=== PATIENT | female | born 1990 | race Caucasian/White ===

== ENCOUNTER → 2020-05-23 | Outpatient (CLI) | payer MEDICARE, OTHER ==
[2020-05-23 15:37] LABS: HEMATOCRIT 33.6 % (36.0-47.0); HEMOGLOBIN 11.5 g/dL (12.0-15.5); RED BLOOD COUNT 3.84 x10^6/uL (3.50-5.40); RED CELL DISTRIBUTION WIDTH 14.6 % (11.5-14.5); WHITE BLOOD COUNT 16.8 x10^3/uL (4.0-11.0)
== END | disposition home or self-care (01) ==
LOC: LAB 14:15
PROVIDERS: ATTEND Obstetrics & Gynecology
DX: Z34.92 Encounter for supervision of normal pregnancy, unspecified, second trimester (principal)
CPT/HCPCS: 36415; 82950; 85027

== ENCOUNTER → 2020-06-04 | Outpatient (CLI) | payer MEDICARE, OTHER ==
--- NOTE | 2020-06-04 17:40 | RAD ---
Examination: PREG MORE THAN OR EQ TO 14 WKS History: Reason: screening / Spl. Instructions: / History: Comparison/Correlation: None Findings: OB ultrasound exam was performed. Single living intrauterine gestation with a breech lie is present and has a heart rate of 126 beats per minute. Grade 1 placenta is present along the anterior wall. motion including cardiac motion is seen. breathing noted. anatomy identified includes: Cord insertion, stomach, kidneys, spine, brain, fluid in the bladder. Bilateral extremities are visualized. Normal quantity of amniotic fluid is seen. Biparietal diameter is 6.5 cm corresponding to 27 weeks 4 days. Head circumference is 24.7 cm corresponding to 26 weeks 6 days. Abdominal circumference is 23 corresponding to 27 weeks 3 days. Femur length is 4.88 cm corresponding to 26 weeks 3 days. Head circumference to abdominal circumference ratio is 1.08. Estimated weight is 1014 g. Average ultrasound age is 27 weeks 1 day. Ultrasound EDC is 09/02/2020. Maternal cervical length is 4.7 cm. Impression: Single living breech lie intrauterine gestation with average ultrasound age of 27 weeks 1 day. EDC by ultrasound is 6 days earlier than EDC by last menstrual period. Electronically signed by: Baljit Michele MD (06/04/2020 5:37 PM) [id number]
== END | disposition home or self-care (01) ==
LOC: US 14:49
PROVIDERS: ATTEND Obstetrics & Gynecology
DX: Z34.92 Encounter for supervision of normal pregnancy, unspecified, second trimester (principal); Z3A.27 27 weeks gestation of pregnancy
CPT/HCPCS: 76805

== ENCOUNTER 2020-08-16 10:37 | Observation (INO) | payer MEDICARE, OTHER ==
[2020-08-16 11:58] LABS: HEMATOCRIT 34.3 % (36.0-47.0); HEMOGLOBIN 11.4 g/dL (12.0-15.5); RED BLOOD COUNT 4.08 x10^6/uL (3.50-5.40); RED CELL DISTRIBUTION WIDTH 15.6 % (11.5-14.5); WHITE BLOOD COUNT 18.7 x10^3/uL (4.0-11.0)
[2020-08-16 12:03] LABS: CALCIUM 9.6 mg/dL (8.5-10.1); CREATININE 0.6 mg/dL (0.6-1.0); GFR 115.9; POTASSIUM 3.8 mmol/L (3.5-5.1)
[2020-08-16 12:10] LABS: ALBUMIN 2.6 g/dL (3.4-5.0); ALBUMIN/GLOBULIN RATIO 0.7 (1.0-1.7); TOTAL BILIRUBIN 0.1 mg/dL (0.2-1.0); TOTAL PROTEIN 6.5 g/dL (6.4-8.2); URIC ACID 4.4 mg/dL (2.6-6.0)
== END 2020-08-16 12:40 | disposition home or self-care (01) ==
LOC: 3 SO LND 10:37
PROVIDERS: ADMIT Obstetrics & Gynecology; ATTEND Obstetrics & Gynecology
DX: O62.9 Abnormality of forces of labor, unspecified (principal); Z3A.36 36 weeks gestation of pregnancy
CPT/HCPCS: 36415; 80053; 83615; 84550; 85027; G0378; G0379

== ENCOUNTER 2020-08-23 10:49 | Observation (INO) | payer MEDICARE, OTHER | END 2020-08-23 12:03 | disposition home or self-care (01) | LOC: 3 SO LND 10:49 | PROVIDERS: ADMIT Obstetrics & Gynecology; ATTEND Family Medicine | DX: O26.893 Other specified pregnancy related conditions, third trimester (principal); O99.343 Other mental disorders complicating pregnancy, third trimester; F41.8 Other specified anxiety disorders; F32.9 Major depressive disorder, single episode, unspecified; Z3A.37 37 weeks gestation of pregnancy | CPT/HCPCS: G0378; G0379 ==

== ENCOUNTER → 2020-08-28 | Outpatient (CLI) | payer MEDICARE, OTHER | LOC: LAB 12:57 | PROVIDERS: ATTEND Obstetrics & Gynecology | DX: Z20.828 Contact with and (suspected) exposure to other viral communicable diseases (principal) | CPT/HCPCS: U0003-CS ==

== ENCOUNTER 2020-08-31 05:41 | Inpatient (IN) | payer MEDICARE, OTHER ==
[~2020-08-31] VITALS: Ht 175.3 cm; Wt 105.7 kg
[2020-08-31] MEDS ORDERED: CITRIC ACID/SODIUM CITRATE 30 ML SOLUTION. PO ONE (06:00)
[2020-08-31] MEDS ORDERED: IV NORMAL SALINE 1000ML BAG 1,000 ML IV SCH (06:00)
[2020-08-31] MEDS: IV RINGERS,LACTATED 1000ML 1,000 ML IV PRN ×3 (06:29→09:41)
[2020-08-31] MEDS ORDERED: AZITHROMYCIN 500 MG in IV NORMAL SALINE 250ML 250 ML IV ONE (06:30)
[2020-08-31] MEDS ORDERED: KETOROLAC 30 MG/ML VIAL. IV PRN (06:45)
[2020-08-31 06:48] LABS: BASO # 0.1 x10^3/uL (0.0-0.2); BASO % 1 % (0-3); EOS # 0.2 x10^3/uL (0.0-0.7); EOS % 2 % (0-3); HEMATOCRIT 34.1 % (36.0-47.0); HEMOGLOBIN 11.5 g/dL (12.0-15.5); LYMPH # 3.2 x10^3/uL (1.0-4.8); LYMPH % 21 % (24-48); MEAN CORPUSCULAR HEMOGLOBIN 28 pg (25-35); MEAN CORPUSCULAR HGB CONC 34 g/dL (31-37); MEAN CORPUSCULAR VOLUME 85 fL (79-100); MONO # 0.7 x10^3/uL (0.0-1.1); MONO % 5 % (0-9); NEUT # 11.2 x10^3/uL (1.8-7.7); NEUT % 73 % (31-73); PLATELET COUNT 280 x10^3/uL (140-400); RED BLOOD COUNT 4.03 x10^6/uL (3.50-5.40); RED CELL DISTRIBUTION WIDTH 16.3 % (11.5-14.5); WHITE BLOOD COUNT 15.5 x10^3/uL (4.0-11.0)
[2020-08-31] MEDS ORDERED: MORPHINE PF 10 MG/10 ML AMPUL. ONE (07:06)
[2020-08-31] MEDS ORDERED: fentaNYL PF VIAL 100 MCG/2 ML VIAL ONE (07:06)
[2020-08-31] MEDS ORDERED: ONDANSETRON PF 4 MG/2 ML VIAL. ONE (07:23)
[2020-08-31] MEDS ORDERED: OXYTOCIN 10 UNIT/ML VIAL. ONE (07:23)
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
[2020-08-31] MEDS ORDERED: GENTAMICIN SULFATE 230 MG in IV NORMAL SALINE 100ML 100 ML IV SCH (08:00)
[2020-08-31] MEDS ORDERED: PHENYLEPHRINE in 0.9% NACL PF 1 MG/10 ML SYRINGE. IV ONE (09:08)
[2020-08-31] MEDS ORDERED: ePHEDrine PF IN SALINE 50 MG/10 ML SYRINGE. IV ONE (09:08)
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
[2020-08-31] MEDS ORDERED: diphenhydrAMINE ORAL ELIXIR 12.5 MG/5 ML ML PO PRN (09:45)
[2020-08-31] MEDS ORDERED: oxyCODONE/APAP 5/325 1 TAB TABLET PO PRN ×2 (09:45)
[2020-08-31] MEDS ORDERED: MMR per PROTOCOL. MC PRN (09:45)
[2020-08-31] MEDS ORDERED: 0.9 % SODIUM CHLORIDE 10 ML DISP.SYRIN. IV PRN (09:45)
[2020-08-31] MEDS ORDERED: OXYTOCIN 30 UNIT/500 ML PREMIX 500 ML IV PRN (09:45)
[2020-08-31] MEDS ORDERED: TDaP (Adacel) per PROTOCOL. MC PRN (09:45)
[2020-08-31] MEDS ORDERED: BENZOCAINE 20% TOPICAL AEROSOL SPRAY 57GM CAN. TP PRN (09:45)
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
[2020-08-31 12:10] VITALS: BP 133/75
[2020-08-31 12:50] VITALS: BP 122/71
[2020-08-31 13:20] VITALS: BP 116/68
[2020-08-31 13:45] LABS: BILIRUBIN,URINE NEGATIVE (NEG); CLARITY,URINE CLEAR; COLOR,URINE YELLOW; NITRITE,URINE NEGATIVE (NEG); PROTEIN,URINE 30 mg/dL (NEG-TRACE)
[2020-08-31 13:52] LABS: BACTERIA,URINE 0 /HPF (0-FEW); RBC,URINE OCC /HPF (0-2)
[2020-08-31 14:20] VITALS: BP 139/71
[2020-08-31 18:30] VITALS: BP 138/75
[2020-08-31 23:18] VITALS: BP 111/66
[2020-09-01] MEDS: IBUPROFEN 400 MG TABLET. PO PRN ×3 (04:56→23:34)
[2020-09-01 05:02] VITALS: BP 112/70
[2020-09-01 08:06] LABS: HEMATOCRIT 26.9 % (36.0-47.0); HEMOGLOBIN 8.9 g/dL (12.0-15.5); RED BLOOD COUNT 3.18 x10^6/uL (3.50-5.40); RED CELL DISTRIBUTION WIDTH 16.5 % (11.5-14.5); WHITE BLOOD COUNT 16.3 x10^3/uL (4.0-11.0)
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
[2020-09-01] MEDS ORDERED: MULTIVITAMIN with MINERAL TABLET. PO SCH (09:00)
[2020-09-01] MEDS: DOCUSATE SODIUM 100 MG CAPSULE. PO PRN (09:18)
[2020-09-01] MEDS: PRENATAL MULTIVITAMIN TABLET. PO SCH (09:18)
[2020-09-01] MEDS: FERROUS SULFATE 325 MG TABLET. PO SCH ×2 (09:18→17:44)
[2020-09-01 12:30] VITALS: BP 129/81
[2020-09-01 17:53] VITALS: BP 138/84
[2020-09-01] MEDS: ACETAMINOPHEN 325 MG TABLET. PO PRN (21:03)
[2020-09-01 23:45] VITALS: BP 109/52
[2020-09-02 05:41] VITALS: BP 141/93
[2020-09-02] MEDS: ACETAMINOPHEN 325 MG TABLET. PO PRN ×2 (06:04→14:45)
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
[2020-09-02] MEDS ORDERED: IBUP-1060 PO (08:28)
[2020-09-02] MEDS: DOCUSATE SODIUM 100 MG CAPSULE. PO PRN (08:28)
[2020-09-02] MEDS ORDERED: OXYC1TAB15 PO (08:28)
[2020-09-02] MEDS: FERROUS SULFATE 325 MG TABLET. PO SCH (08:28)
[2020-09-02] MEDS: IBUPROFEN 400 MG TABLET. PO PRN (08:28)
[2020-09-02] MEDS ORDERED: DOCU-109 PO (08:28)
[2020-09-02] MEDS: PRENATAL MULTIVITAMIN TABLET. PO SCH (08:29)
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
[2020-09-02 14:45] VITALS: BP 140/88
== END 2020-09-02 16:00 | disposition home or self-care (01) | DRG 788 ==
LOC: 3 SO LND 05:41 → 3 NORTH 12:05
PROVIDERS: ADMIT Obstetrics & Gynecology; ATTEND Obstetrics & Gynecology
PROC: 10D00Z1 Extraction of Products of Conception, Low, Open Approach (ICD-10-PCS; principal; 2020-08-31)
DX: O99.02 Anemia complicating childbirth (principal); O34.211 Maternal care for low transverse scar from previous cesarean delivery; D64.9 Anemia, unspecified; F32.9 Major depressive disorder, single episode, unspecified; O99.344 Other mental disorders complicating childbirth; G43.909 Migraine, unspecified, not intractable, without status migrainosus; J45.909 Unspecified asthma, uncomplicated; O99.52 Diseases of the respiratory system complicating childbirth; O99.334 Smoking (tobacco) complicating childbirth; F17.200 Nicotine dependence, unspecified, uncomplicated; K80.80 Other cholelithiasis without obstruction; O99.62 Diseases of the digestive system complicating childbirth; Z37.0 Single live birth; Z82.49 Family history of ischemic heart disease and other diseases of the circulatory system; Z80.0 Family history of malignant neoplasm of digestive organs; Z3A.39 39 weeks gestation of pregnancy; O14.94 Unspecified pre-eclampsia, complicating childbirth
CPT/HCPCS: 36415; 81001; 85025; 85027; 86592; 86850; 86900; 86901; 87086; J1885; J2274; J2370; J2405; J2590; J3010; J7120; G0378

== ENCOUNTER → 2021-04-23 | Outpatient (CLI) | payer MEDICARE, OTHER ==
[~2021-04-23] MED LIST: DOCU-109 PO; IBUP-1060 PO; OXYC1TAB15 PO
== END ==
LOC: LAB 14:29
PROVIDERS: ATTEND Obstetrics & Gynecology
DX: Z20.2 Contact with and (suspected) exposure to infections with a predominantly sexual mode of transmission (principal)
CPT/HCPCS: 36415; 86592; 86703; 86803; 87340

== ENCOUNTER → 2021-10-21 | Outpatient (CLI) | payer MEDICARE, OTHER | LOC: LAB 12:49 | PROVIDERS: ATTEND Obstetrics & Gynecology | DX: N90.89 Other specified noninflammatory disorders of vulva and perineum (principal); Z20.6 Contact with and (suspected) exposure to human immunodeficiency virus [HIV] | CPT/HCPCS: 36415; 86592; 86703; 86803; 87340 ==